=== PATIENT | male | born 1960 | race Caucasian/White ===

== ENCOUNTER 2025-08-25 08:49 | Emergency (ER) | payer MEDICARE, OTHER ==
[~2025-08-25] VITALS: Ht 177.8 cm; Wt 100.0 kg
[2025-08-25 09:46] VITALS: PULSE 69; RESP 20; O2SAT 96
[2025-08-25] MEDS: IPRATROPIUM BROMIDE (0.02%) 0.5MG/2.5ML NEB HHN ONE (09:46)
[2025-08-25] MEDS: ALBUTEROL (0.083%) 2.5MG/3ML NEB HHN ONE (09:46)
[2025-08-25] MEDS: PREDNISONE 20MG TABLET PO ONE (09:50)
[2025-08-25 10:10] LABS: BASOPHILS % 0.3 % (0.0-2.0); EOSINOPHILS % 4.4 % (0.0-5.0); HEMATOCRIT. 36.7 % (42.0-52.0); HEMOGLOBIN. 11.7 g/dL (14.0-18.0); LYMPHOCYTES % 15.0 % (20.0-50.0); MEAN PLATELET VOLUME 9.7 fl (7.4-10.4); MONOCYTES % 9.7 % (2.0-8.0); NEUTROPHILS % 70.6 % (40.0-76.0); PLATELET 318 x1000/uL (130-400); RED BLOOD CELL COUNT 4.56 mill/uL (4.7-6.1); RED CELL DISTRIBUTION WIDTH 16.2 % (11.6-14.6)
[2025-08-25 10:25] LABS: CREATININE 0.7 mg/dL (0.6-1.3); TROPONIN I HIGH SENSITIVITY 4 ng/L (3.0-53); UREA NITROGEN BLOOD 12 mg/dL (9-23)
[2025-08-25 10:27] LABS: ASPARTATE AMINOTRANSFERASE 27 IU/L (<34); BILIRUBIN DIRECT < 0.1 mg/dL (<=3.0); BILIRUBIN TOTAL 0.4 mg/dL (0.1-1.0)
[2025-08-25 10:28] LABS: PROTEIN TOTAL 6.9 g/dL (6.0-8.3)
[2025-08-25 10:30] LABS: INR 1.0
[2025-08-25] MEDS ORDERED: OXYM30SP26 BOTHNSTRLS (10:41)
[2025-08-25 11:00] VITALS: BP 158/63; PULSE 65; RESP 18; TEMP 37.1; O2SAT 99
== END 2025-08-25 11:06 | disposition home or self-care (01) ==
LOC: ER 08:49 → CANBEDREQ 10:17 → ER 11:06
DX: R09.81 Nasal congestion (principal); R06.02 Shortness of breath; E78.5 Hyperlipidemia, unspecified; I10 Essential (primary) hypertension; Z87.891 Personal history of nicotine dependence
CPT/HCPCS: 99285; 71045; 80076; 80048; 83880; 85025; 85610; 84484; 36415; 94640; 93005; J7512; 94664